=== PATIENT | female | born 1995 | race Native Hawaiian/Other Pacific Islander ===

== ENCOUNTER 2017-08-15 12:26 | Outpatient (CLI) | payer BC ==
[2017-08-15 13:35] LABS: PLATELET COUNT 387 K/uL (152-353)
== END 2017-08-15 14:00 | disposition home or self-care (01) ==
LOC: LABW 12:26 → RAD 12:26 → LABW 14:00
PROVIDERS: Nurse Practitioner Family
DX: M79.604 Pain in right leg (principal); R60.0 Localized edema
CPT/HCPCS: 36415; 85027; 85379

== ENCOUNTER 2019-02-05 13:42 | Outpatient (CLI) | payer BC | END 2019-02-05 22:31 | disposition home or self-care (01) | LOC: LAB 13:42 | DX: N39.0 Urinary tract infection, site not specified (principal) | CPT/HCPCS: 87077; 87086; 87088; 87186 ==

== ENCOUNTER 2023-05-10 09:55 | Outpatient (CLI) | payer BC | END 2023-05-10 18:57 | disposition home or self-care (01) | LOC: RAD 09:55 | PROVIDERS: ATTEND Internal Medicine | DX: R09.1 Pleurisy (principal) ==